=== PATIENT | male | born 1990 | race Caucasian/White ===

== ENCOUNTER → 2017-04-08 | Outpatient (CLI) | payer OTHER ==
--- NOTE | 2017-04-08 18:28 | RADIOLOGY REPORT PS360 ---
MRI-BRAIN W/O HISTORY: Severe headache with dizziness, left-sided headache, dizziness and blurred vision NONINTACTABLE EPISODIC HEADACHE, DIZZINESS ORDERING PHYSICIAN: Bi Acosta MD PATIENT AGE: 26 years COMPARISON: None TECHNIQUE: Standard multiplanar multiecho sequences are performed without contrast. FINDINGS: No midline shift, mass effect, intracranial hemorrhage, or hydrocephalus is evident. Cerebellopontine angles, cerebellum, and brainstem have an unremarkable appearance. Unremarkable appearing pituitary, optic chiasm, and corpus callosum. No cerebellar tonsillar ectopia. No restricted diffusion. No evidence of acute infarction. Unremarkable white matter signal intensity. Hippocampal gyri are unremarkable in the temporal horns are symmetric. No mastoid effusion or sinus air-fluid level. IMPRESSION: No acute intracranial findings. Negative MRI of the brain without contrast.
== END ==
LOC: RAD 09:51
DX: R51 Headache (principal); R42 Dizziness and giddiness